=== PATIENT | female | born 1990 | race Caucasian/White ===

== ENCOUNTER 2025-08-11 10:04 | Outpatient (CLI) | payer OTHER, SELFPAY ==
[2025-08-13 07:47] LABS: HPV Source Cervical
[2025-08-19 11:22] LABS: Pap Test Screened Manually Done
== END 2025-08-11 10:05 | disposition home or self-care (01) ==
PROVIDERS: PCP Family Medicine; Visit Provider Family Medicine
DX: Z12.4 Encounter for screening for malignant neoplasm of cervix (principal); Z11.51 Encounter for screening for human papillomavirus (HPV); Z13.6 Encounter for screening for cardiovascular disorders; Z13.9 Encounter for screening, unspecified
CPT/HCPCS: 80048; 80061; 85025; 87624; 87625; 88141; 88142; 88175